=== PATIENT | female | born 1975 | race African-American/Black ===

== ENCOUNTER 2024-07-14 02:46 | Emergency (ER) | payer MEDICAID ==
[~2024-07-14] VITALS: Ht 162.6 cm; Wt 55.0 kg
[2024-07-14 03:01] VITALS: O2SAT 97
[2024-07-14 03:07] VITALS: BP 137/88; PULSE 87; RESP 18; TEMP 37.3; O2SAT 97
[2024-07-14 03:38] LABS: BASOPHILS % 0.5 % (0.0-2.0); EOSINOPHILS % 1.2 % (0.0-5.0); HEMATOCRIT. 40.1 % (36.0-48.0); HEMOGLOBIN. 13.4 g/dL (12.0-16.0); LYMPHOCYTES % 9.5 % (20.0-50.0); MEAN CORPUSCULAR HEMOGLOBIN 33.2 pg (28.0-32.0); MEAN CORPUSCULAR HGB CONC 33.5 g/dL (31.0-37.0); MEAN CORPUSCULAR VOLUME 99.2 fL (81.0-99.0); MEAN PLATELET VOLUME 12.2 fl (7.4-10.4); MONOCYTES % 6.8 % (2.0-8.0); PLATELET 161 x1000/uL (130-400); RED BLOOD CELL COUNT 4.05 mill/uL (4.2-5.4); RED CELL DISTRIBUTION WIDTH 13.1 % (11.6-14.6); WHITE BLOOD COUNT 14.1 x1000/uL (4.5-11.0)
[2024-07-14] MEDS ORDERED: ACETAMINOPHEN 325MG TABLET PO ONE (03:45)
[2024-07-14 03:46] LABS: CHLORIDE 101 mEq/L (98-107); POTASSIUM 3.3 mEq/L (3.5-5.1); SODIUM 137 mEq/L (136-145)
[2024-07-14 03:47] LABS: CALCIUM 9.6 mg/dL (8.7-10.4); CARBON DIOXIDE 24 mEq/L (21-32)
[2024-07-14 03:52] LABS: CREATININE 0.9 mg/dL (0.6-1.0); GLUCOSE 215 mg/dL (70-105); UREA NITROGEN BLOOD 11 mg/dL (9-23)
== END 2024-07-14 04:26 | disposition left against medical advice (07) ==
LOC: ER 02:59
DX: M79.18 Myalgia, other site (principal); Z98.890 Other specified postprocedural states
CPT/HCPCS: 36415; 71045; 80048; 85025; 99284